=== PATIENT | male | born 1990 | race Caucasian/White ===

== ENCOUNTER 2023-05-11 17:26 | Emergency (ER) | payer BC, SELFPAY ==
[2023-05-11 17:37] VITALS: BP 133/97; PULSE 75; RESP 20; TEMP 36.7; O2SAT 97; BMI 42.9
--- NOTE | 2023-05-11 17:42 | ED.DENTAL1 ---
HPI - Dental/Oral General Chief complaint: Dental/Oral Stated complaint: Dental Pain Time Seen by Provider: 05/11/23 17:42 Source: patient Mode of arrival: walk-in History of Present Illness HPI Narrative: Patient is a 33-year-old male who presents to the emergency department for the evaluation of dental pain in the left mandible that began yesterday. He states ibuprofen was controlling his pain yesterday but today he has had a significant increase in pain on tooth #20 where he has a partial avulsion. He denies any new injuries or traumas. No drainage from the tooth. He denies fevers or vomiting. He denies tobacco abuse. Related Data Previous Rx's Medication Instructions Recorded amoxicillin 500 mg capsule 500 mg PO TID 10 days #30 caps 05/11/23 ketorolac 10 mg tablet 10 mg PO TID PRN pain #10 tabs 05/11/23 Allergies Allergy/AdvReac Type Severity Reaction Status Date / Time No Known Drug Allergies Allergy Verified 05/11/23 17:39 Review of Systems ROS Constitutional Denies: fever or chills Ears, nose, mouth, and throat Denies: throat pain or nasal congestion Respiratory Denies: shortness of breath Gastrointestinal Denies: nausea or vomiting Musculoskeletal Denies: back pain Integumentary/Breast Denies: rash Neurological Denies: headache Hematologic/Lymphatic Denies: easy bruising Exam Narrative Exam Narrative: Gen.: Awake, alert, in no distress Head: Normocephalic, atraumatic ENT: Moist mucous membranes, partial avulsion of tooth #20 with root exposure at the gumline. No redness or swelling under the tongue. Clear speech. Uvula midline with airway widely open and patent. No visible dental abscess or drainage noted Respiratory: No respiratory distress Extremities: Moves extremities equally Psych: Normal mood and affect Neuro: No focal neuro deficit Skin: Warm, dry, intact Constitutional Vital Signs, click to edit/add: Last Vital Signs Temp 98.1 F 05/11/23 17:37 Pulse 75 05/11/23 17:37 Resp 20 05/11/23 17:37 BP 133/97 H 05/11/23 17:37 Pulse Ox 97 05/11/23 17:37 O2 Del Method Room Air 05/11/23 17:37 Course Vital Signs Vital signs: Vital Signs Temperature 98.1 F 05/11/23 17:37 Pulse Rate 75 05/11/23 17:37 Respiratory Rate 20 05/11/23 17:37 Blood Pressure 133/97 H 05/11/23 17:37 Pulse Oximetry 97 05/11/23 17:37 Oxygen Delivery Method Room Air 05/11/23 17:37 Temperature 98.1 F 05/11/23 17:37 Pulse Rate 75 05/11/23 17:37 Respiratory Rate 20 05/11/23 17:37 Blood Pressure 133/97 H 05/11/23 17:37 Pulse Oximetry 97 05/11/23 17:37 Oxygen Delivery Method Room Air 05/11/23 17:37 MDM - Dental/Oral MDM Narrative Medical decision making narrative: Patient treated with topical analgesia, antibiotics and a short course of NSAIDs. Follow-up with dentist and return to the Emergency Room if symptoms change or worsen. No evidence of dental abscess at this time. Medical Records Attestation: I reviewed the patient's medical records. Discharge Plan Discharge Chief Complaint: Dental/Oral Clinical Impression: Toothache, Fracture of tooth Patient Disposition: Home, Self-Care Time of Disposition Decision: 17:48 Condition: Good Prescriptions / Home Meds: New amoxicillin 500 mg capsule 500 mg PO TID 10 Days Qty: 30 0RF ketorolac 10 mg tablet 10 mg PO TID PRN (Reason: pain) Qty: 10 0RF Instructions: Toothache (ED) Additional Instructions: Follow-up with your dentist Stand Alone Forms: Portal Instructions Referrals: CAROLYNE MARIE [Primary Care Provider] - 1 week
[2023-05-11] MEDS: HYDROCODONE/ACET 5-325 MG TABLET 1 TAB PO (18:04)
[2023-05-11] MEDS: BENZOCAINE 30 ML, lidocaine HCL 15 ML MM (18:06)
== END 2023-05-11 18:08 | disposition home or self-care (01) ==
PROVIDERS: Emergency Provider Emergency Medicine; PCP Nurse Practitioner Family
DX: S02.5XXA Fracture of tooth (traumatic), initial encounter for closed fracture (principal); K08.89 Other specified disorders of teeth and supporting structures; X58.XXXA Exposure to other specified factors, initial encounter
CPT/HCPCS: 99283

== ENCOUNTER 2025-04-12 07:06 | Outpatient (OUT) | payer BC, SELFPAY ==
--- OUTSIDE RECORDS SUMMARY | 2025-04-05 09:38 | XMS_ITS | Continuity of Care Document ---
Author Organization [facility] Address [address] [place] [address] Phone Care Team Providers Care Bulb Weeder Name Role Phone Corry Byrne APRN Primary Care Provider Corry Byrne APRN Attending Provider [phone]( [phone] Care Teams Patient Care Team Team Status: Active Member Role Status Dates Corry Byrne APRN ORDER ENTRY-C Primary Care Provider Active Patient Care Team Team Status: Inactive Member Role Status Dates Corry Byrne APRN ORDER ENTRY-C Primary Care Provider Active Start: March End: April 05, 2025Corry Byrne APRN ORDER ENTRY-CAttending ProviderActive Start: April 05, 2025 End: April 05, 2025 Chief Complaint and Reason for Visit Chief Complaint Admit Date Wellness April 05, 2025 1 :03pm Reason for Visit Admit Date BMI 40.0-44.9, adult April 05, 2025 1:03pm Hypercholesterolemia April 05, 2025 1:03pm Impaired fasting glucose April 05, 2 025 1:03pm Wellness examination April 05, 2025 1:03pm Allergies, Adverse Reactions, Alerts Allergen Type Severity Reaction Last Updated Verified Status No Known Allergies Allergy Unknown April 05, 2025 1:04pmYesActive Social History Smoking Status Status Start Date End Date Date of Observa tion Never smoked tobacco (finding) October 23, 2024 9:34am Observation Status Observation Response Date of Response Legal Sex Male (finding) Sex Assigned At BirthMaleSeptember 1989 Family History Relationship Condition Age at Onset Recorded Date/T samanta father Hypertension Unknown Diabetes mellitusUnknownDeceasedUnknownmotherDiabetes mellitusUnknownsister Diabetes mellitusUnknown Problems Active Problems Medical Problem Onset Date Status Wellness examination Unknown Active Hypercholesterolemia Unknown Active Impaired fasting glucose Unknown Active BMI 40.0-44.9, adult Unknown Active Inactive/Resolved Problems Medical Problem Onset Date Status Viral URI with cough Unknown Resolved Cellulitis of right thumb Unknown Resolv ed Medications Medication Status Dose Units Route Directions Qty Days St art Date Stop Date End Date Instructions Adherence Atorvastatin 10 mg tablet Active 10 MG PO Daily 90 90 April 04, 2025 11:11am Complies with drug therapyAmoxicillin-Pot Clavulanate 875-125 mg tablet Uinhoecepvlc8FZAWTPeegb wctnk2784RttqgyuApril 07, 2024 12:00amMay 2024 9:34am Atorvastatin 10 mg qbfakyHywrhmbgegeb25IUAMIatvqFejvakf 2023 12:00amOctober 2023 11:37amAtorvastatin 10 mg fgrvsqLnavolmbpvdp67QQKTAkktu7265Fboyriw 2023 11:[facility] 11:11am Immunizations Immunization Event Date Not Given Reason Dose Number [employer] Lot Number Vaccine Information Statement (VIS) Detail Administration Location Quadrivalent Influenza April 06, 2018 Quadrivalent InfluenzaOct2018 Vital Signs Vital Reading Result Reference Range Collection Date/Time Height 64 [in_i] April 05, 2025 1:[facility] 1:05pmBody Odocijlyvln49.2 [degF]97.6-99.0[facility] 2024 1:05pmHeart Rate86 /ghb81-087 April 05, 2025 1:05pmOxygen saturation by Pulse bnahabmw20 %95-100[facility] 2024 1:05pmBP Htklapwd319 mm[Hg]100-140[facility] 2024 1:05pmBP Ngiodzzgo53 mm[Hg]60-100[facility] 2024 1:05pmBMI (Body Mass Index)40.3 kg/m2 April 05, 2025 1:05pm Advance Directives Advance Directive Response Recorded Date/ Time Advance Directives No July 10:33am Insurance Providers Guarantor Kimani Basilio Address [address] [place] [address] [place] [address]Juoayyj Info.Home Phone: Payer Policy Id Subscriber's Name Subscriber Id Effectiv e Date Expiration Date Daniela GALDAMEZ/JEROMY [id number] Kimani Basilio [id number] [facility] Net [id number] [place] , [id number] Encounters Encounter Location(s) Arrival/Admit Date Discharge/Depart Date Provider(s) Departed Physician/Prov ider Office Visit -[facility] April 05, 2025 1:03pm April 05, 2025 1:37pm Corry Byrne APRN CNP Recent Diagnosis Onset Date Admit Date BMI 40.0-44.9, adult Unknown March 1:03pm Hypercholesterolemia Unknown March 1:03pm Impaired fasting glucose Unknown April 05, 2025 1:03pm Wellness examination Unknown March 1:03pm Assessments Diagnosis Onset Date Resolution Status Admit Date BMI 40.0-44.9, adult acuteOctober 2024 1:03pmHypercholesterolemiaacuteOct2024 1:03pm Impaired fasting glucoseacuteOct2024 1:03pmWellness examinationacute April 05, 2025 1:03pm Plan of Treatment Author Corry Byrne [facility] 1:23pmContinue Atorvastatin Discussed importance of maintaining an LDL level at specified goal. Discussed associated risk factors of hyperlipidemia including stroke and heart attack. Treatment with medications discussed and we have agrees upon appropriate action of treatment and goals. Discussed dietary modifications, including decreasing red meat consumption, decreased alcohol consumption, avoiding fried foods, and cake and cookies, and sweets. Encouraged increasing fiber in diet and eat a diet rich in omega-3. Encouraged to exercise at least 150 minutes weekly. Barriers to plan of care have been addressed. Follow-up as directed. Patient given a copy of the plan of care. Due for A1c Personalized health advice was given a plan for screenings discussed and provided. Advanced care planning reviewed and/or information given as requested. Additional counseling was provided here today in regards to general topics regarding health education were discussed in detail. All preventative issues were discussed including remaining a nonsmoker, colorectal screening, the importance of proper sleep for brain health maintenance, maintaining a heart- healthy balanced diet, recognizing and addressing signs of anxiety and depression, maintaining positive relationships with family and friends. Patient is advised to work on healthy diet choices and appropriate servings, weight control, regular exercise as directed, reduced fat intake, and salt avoidance. Patient voiced understanding of this and agrees to this plan. Future Tests Future scheduled test information is unavailable Pending Tests Test Name Ordered Date Scheduled Date Comprehensive Metabolic Panel April 05, 2025 1:10pm Future Visits Future appointment information is unavailable Referrals to Other Providers Referral information is unavailable Future Procedures Procedure Name Ordered Date Scheduled Date A1C with Estimated Average Glu April 05 1:10pm Complete Blood Count Auto DiffOctober 2024 1:10pmLipid PanelOctober 2024 1:10pm Future Medications Future medication information is unavailable Patient Instructions Patient instructions are unavailable
--- OUTSIDE RECORDS SUMMARY | 2025-04-12 07:11 | XMS_ITS | CCD ---
Author Organization [facility] Care Team Providers Care Named Account Executive Name Role Phone Corry Byrne Unavailable Ingrid Ferro Unavailable Corry Byrne APRN Primary Care Provider Corry Byrne APRN Attending Provider Medications Current Medications MedicationDrug Class(es)DatesSig (Normalized)Sig (Original)atorvastatin 10 mg oral tablet (10 sources)HMG-CoA Reductase InhibitorStart: 03-29-2024 End: 71-28-0075okub 1 tablet by mouth once dailyAtorvastatin 10 mg tablet Active 10 MG PO Daily April 04, 2025 11:11am Complies with drugtherapytake 1 tablet by mouth every twenty-four hoursLipitor 40 MG 1 tablet Orally Once a day for 90 day(s) Ufhihd55 hr metFORMIN hydrochloride 500 mg extended release oral tablet (2 sources)BiguanideStart: 12-50-2291dqze 1 tablet by mouth every twenty-four hoursmetFORMIN HCl ER 500 MG 1 tablet with evening meal Orally Once a day for 30 day(s) Sep, Active Completed/Discontinued Medications MedicationDrug Class(es)DatesSig (Normalized)Sig (Original)amoxicillin 875 mg / clavulanate 125 mg oral tablet (2 sources)Penicillin-class AntibacterialStart: 04-07-2024 End: 71-97-2036htfu 1 tablet by mouth twice dailyAmoxicillin-Pot Clavulanate 875-125 mg tablet Discontinued 1 TAB PO Twice daily March 12:00am October 23, 2024 9:34amOne Touch Glucometer N/A (2 sources)Start: 69-37-1511Hnl Touch Glucometer N/A as directed use as directed Sep, Not-Taking Problems Active Problems Problem ClassificationProblemDateDocumented DateEpisodic/ChronicDiabetes mellitus without complication (11 sources)Hyperglycemia; Translations: [Impaired fasting glucose]Onset: 09-13-2021 Resolved: 29-14-7156VdhrqstlJnuttxovr of lipid metabolism (11 sources)Hypercholesterolemia; Translations: [Pure hypercholesterolemia, unspecified]Onset: 09-13-2021 Resolved: 73-35-1238UldbmgnSmwtvlwvb (1 source)Influenza due to other identified influenza virus with other respiratory manifestationsEpisodicNutritional deficiencies (5 sources)Vitamin D deficiency; Translations: [Vitamin D deficiency, unspecified]ChronicOther nutritional; endocrine; and metabolic disorders (2 sources)Body mass index 40+ - severely obese; Translations: [Body mass index (BMI) 40.0-44.9, adult]00-17-0709DgpotoxXfjrn upper respiratory infections (2 sources)Acute pharyngitis, unspecified; Translations: [Viral upper respiratory tract infection]EpisodicSkin and subcutaneous tissue infections (2 sources)Cellulitis of right thumb; Translations: [Cellulitis of right finger] 78-31-6955Memtdwxm Past or Other Problems Problem ClassificationProblemDateDocumented DateEpisodic/ChronicOther screening for suspected conditions (not mental disorders or infectious disease) (1 source)Encounter for screening for other metabolic disordersOnset: 09-13-2021 Resolved: 00-54-1437Jakhhicu Results Test NameValueInterpretationReference RangeFacilityNo Panel InformationOrdered By: Kavita Ruiz on 00-26-6729Gdxnr Strep (POC)[facility] InstituteCOVID/FLU RT-PCRon 83-82-5819IHJZ-CoV-2 (COVID-19) RNA AKANKSHA+probe Ql (Unsp spec)NegativeNoPicaHome.com Other COVID/FLU RT-PCRPositiveNoMydeo Other COVID/FLU RT-PCRNegativeMydeo Other Quick Strepon 05-18-2022. pyogenes Org specific cx Ql (Throat)NegativeNortPicaHome.com Other Quick [facility] HospitalPDC [employer] Amplidata Other A1C with Estimated Average Gluon 24-36-8428Qphqmue [Mass/Vol]128 mg/dLNormOhioHealth Grant Medical CenterComment on above:Order Comment: Reason for Exam Impaired fasting glucoseResult Comment: PERFORMED BY: [place] [address] PATHOLOGIST RESIDENTIAL LIFE DIRECTOR TRI KINSEY M.D.Performed By: #### LIPID, CMP, CBC, A1C WTH eA #### [place] [address] EYOHpA6v (Bld) [Mass fraction]6.1 %High4.3-5.6FAdena Regional Medical CenterComment on above:Order Comment: Reason for Exam Impaired fasting glucoseResult Comment: Increased risk for diabetes: 5.7 - 6.4 diabetes: >6.4 glycemic control for adults with diabetes: <7.0Performed By: #### LIPID, CMP, CBC, A1C WTH eA #### [place] [address] USAComplete Blood Count Auto Diffon 80-57-6307Nnmtdxyrn (Bld) [#/Vol]0.0 10*3/uLNormal0.0-0.2FAdena Regional Medical CenterComment on above:Order Comment: Reason for Exam Impaired fasting glucose;Hypercholesterolemia;Screening forResult Comment: PERFORMED BY: [place] [address] PATHOLOGIST RESIDENTIAL LIFE DIRECTOR TRI KINSEY M.D.Performed By: #### LIPID, CMP, CBC, A1C WTH eA #### [place] [address] USABasophils/100 WBC (Bld)0.2 %Normal.[facility] InstituteComment on above:Order Comment: Reason for Exam Impaired fasting glucose;Hypercholesterolemia;Screening forPerformed By: #### LIPID, CMP, CBC, A1C WTH eA #### [place] [id number] USAEosinophils (Bld) [#/Vol]0.1 10*3/uLNormal0.0-0.45 [facility] InstituteComment on above:Order Comment: Reason for Exam Impaired fasting glucose;Hypercholesterolemia;Screening forPerformed By: #### LIPID, CMP, CBC, A1C WTH eA #### [facility] [address] [place] [id number] USAEosinophils/100 WBC (Bld)0.9 %Normal.[facility] Health InstituteComment on above:Order Comment: Reason for Exam Impaired fasting glucose;Hypercholesterolemia;Screening forPerformed By: #### LIPID, CMP, CBC, A1C WTH eA #### [place] [address] USAErythrocyte distribution width (RBC) [Ratio]12.9 %Normal 12.0-14.8R[facility] InstituteComment on above:Order Comment: Reason for Exam Impaired fasting glucose;Hypercholesterolemia;Screening forPerformed By: #### LIPID, CMP, CBC, A1C WTH eA #### [place] [id number] USAHematocrit (Bld) [Volume fraction]43.4 %Qaasyl07.8-50.0 [facility] InstituteComment on above:Order Comment: Reason for Exam Impaired fasting glucose;Hypercholesterolemia;Screening forPerformed By: #### LIPID, CMP, CBC, A1C WTH eA #### [place] [address] USAHemoglobin (Bld) [Mass/Vol]14.7 g/cVAggjcf49.0-17.0 [facility] InstituteComment on above:Order Comment: Reason for Exam Impaired fasting glucose;Hypercholesterolemia;Screening forPerformed By: #### LIPID, CMP, CBC, A1C WTH eA #### [place] [id number] USALymphocytes (Bld) [#/Vol]1.1 10*3/uLNormal1.00-4.8 [facility] InstituteComment on above:Order Comment: Reason for Exam Impaired fasting glucose;Hypercholesterolemia;Screening forPerformed By: #### LIPID, CMP, CBC, A1C WTH eA #### [facility] [address] [place] [id number] USALymphocytes/100 WBC (Bld)9.7 %Normal.[facility] Health InstituteComment on above:Order Comment: Reason for Exam Impaired fasting glucose;Hypercholesterolemia;Screening forPerformed By: #### LIPID, CMP, CBC, A1C WTH eA #### [facility] [address]H (RBC) [Entitic mass]28.6 zsFfaewm59.5-35.2FAdena Regional Medical CenterComment on above:Order Comment: Reason for Exam Impaired fasting glucose;Hypercholesterolemia;Screening forPerformed By: #### LIPID, CMP, CBC, A1C WTH eA #### [place] [address] USAV (RBC) [Entitic vol]84.7 qGXrvveg42.5-101R[facility] Health InstituteComment on above:Order Comment: Reason for Exam Impaired fasting glucose;Hypercholesterolemia;Screening forPerformed By: #### LIPID, CMP, CBC, A1C WTH eA #### [place] [address] USAMean Corpuscular HGB Conc33.8 g/ePPfldoq90.5-35.6FAdena Regional Medical CenterComment on above:Order Comment: Reason for Exam Impaired fasting glucose;Hypercholesterolemia;Screening forPerformed By: #### LIPID, CMP, CBC, A1C WTH eA #### [place] [address] USAMonocytes (Bld) [#/Vol]0.4 10*3/uLNormal0.0-0.8R[facility] InstituteComment on above:Order Comment: Reason for Exam Impaired fasting glucose;Hypercholesterolemia;Screening forPerformed By: #### LIPID, CMP, CBC, A1C WTH eA #### [place] [address] USAMonocytes/100 WBC (Bld)3.6 %Normal.[facility] InstituteComment on above:Order Comment: Reason for Exam Impaired fasting glucose;Hypercholesterolemia;Screening forPerformed By: #### LIPID, CMP, CBC, A1C WTH eA #### [facility] [address] [place] [address] USANeutrophils (Bld) [#/Vol]9.8 10*3/uLHigh1.8-7.7FAdena Regional Medical CenterComment on above:Order Comment: Reason for Exam Impaired fasting glucose;Hypercholesterolemia;Screening forPerformed By: #### LIPID, CMP, CBC, A1C WTH eA #### [facility] [address] [place] [id number] USANeutrophils/100 WBC (Bld)85.6 %Normal.[facility] Health InstituteComment on above:Order Comment: Reason for Exam Impaired fasting glucose;Hypercholesterolemia;Screening forPerformed By: #### LIPID, CMP, CBC, A1C WTH eA #### [facility] [address] [place] [address] USANucleated RBC/100 WBC (Bld) [Ratio]0.0 %Normal0-0.5 [facility] InstituteComment on above:Order Comment: Reason for Exam Impaired fasting glucose;Hypercholesterolemia;Screening forPerformed By: #### LIPID, CMP, CBC, A1C WTH eA #### [facility] [address] [place] [address] USAPlatelet mean volume (Bld) [Entitic vol]9.4 fLNormal 6.6-10.1FAdena Regional Medical CenterComment on above:Order Comment: Reason for Exam Impaired fasting glucose;Hypercholesterolemia;Screening forPerformed By: #### LIPID, CMP, CBC, A1C WTH eA #### [facility] [address] [place] [address] USAPlatelets (Bld) [#/Vol]227 10*3/hCYpxypy070-976LaxkdvojdRiverview Health InstituteComment on above:Order Comment: Reason for Exam Impaired fasting glucose;Hypercholesterolemia;Screening forPerformed By: #### LIPID, CMP, CBC, A1C WTH eA #### [facility] [address] [place] [address] USARBC (Bld) [#/Vol]5.13 10*6/uLNormal3.90-5.60R[facility] Health InstituteComment on above:Order Comment: Reason for Exam Impaired fasting glucose;Hypercholesterolemia;Screening forPerformed By: #### LIPID, CMP, CBC, A1C WTH eA #### [facility] [address] [place] [address] USAWBC (Bld) [#/Vol]11.5 10*3/uLHigh4.5-11.0R[facility] Health InstituteComment on above:Order Comment: Reason for Exam Impaired fasting glucose;Hypercholesterolemia;Screening forPerformed By: #### LIPID, CMP, CBC, A1C WTH eA #### [facility] [address] [place] [id number] USAComprehensive Metabolic Panelon 20-52-3270Ceayfnp [Mass/Vol]4.2 g/dLNormal3.2-5.5FAdena Regional Medical CenterComment on above:Order Comment: Reason for Exam Impaired fasting glucose;Hypercholesterolemia;Screening forPerformed By: #### LIPID, CMP, CBC, A1C WTH eA #### [facility] [address] [place] [address] USAAlbumin/Globulin [Mass ratio]1.4 {ratio}NormalRiverview Health InstituteComment on above:Order Comment: Reason for Exam Impaired fasting glucose;Hypercholesterolemia;Screening forPerformed By: #### LIPID, CMP, CBC, A1C WTH eA #### [facility] [address] [place] [address] USAALP [Catalytic activity/Vol]98 U/GBdrh53-91QewiteryrRiverview Health InstituteComment on above:Order Comment: Reason for Exam Impaired fasting glucose;Hypercholesterolemia;Screening forPerformed By: #### LIPID, CMP, CBC, A1C WTH eA #### [facility] [address] [place] [address] USAALT [Catalytic activity/Vol]65 U/VJauq02-28WhbfdnptgRiverview Health InstituteComment on above:Order Comment: Reason for Exam Impaired fasting glucose;Hypercholesterolemia;Screening forPerformed By: #### LIPID, CMP, CBC, A1C WTH eA #### [facility] [address] [place] [address] USAAST [Catalytic activity/Vol]34 U/MHspkao90-58YgqcojlkrRiverview Health InstituteComment on above:Order Comment: Reason for Exam Impaired fasting glucose;Hypercholesterolemia;Screening forPerformed By: #### LIPID, CMP, CBC, A1C WTH eA #### [facility] [address] [place] [address] USABilirubin [Mass/Vol]0.9 mg/dLNormal0.3-1.2FAdena Regional Medical CenterComment on above:Order Comment: Reason for Exam Impaired fasting glucose;Hypercholesterolemia;Screening forPerformed By: #### LIPID, CMP, CBC, A1C WTH eA #### [facility] [address] [place] [address] USACalcium [Mass/Vol]9.8 mg/dLNormal8.2-10.2FAdena Regional Medical CenterComment on above:Order Comment: Reason for Exam Impaired fasting glucose;Hypercholesterolemia;Screening forPerformed By: #### LIPID, CMP, CBC, A1C WTH eA #### [facility] [address] [place] [id number] USAChloride [Moles/Vol]102 mmol/IUfvktf51-532VzwfmzuvpRiverview Health InstituteComment on above:Order Comment: Reason for Exam Impaired fasting glucose;Hypercholesterolemia;Screening forPerformed By: #### LIPID, CMP, CBC, A1C WTH eA #### [facility] [address] [place] [id number] USACO2 [Moles/Vol]27.6 mmol/KJqjbzf65.0-30.0R[facility] Health InstituteComment on above:Order Comment: Reason for Exam Impaired fasting glucose;Hypercholesterolemia;Screening forPerformed By: #### LIPID, CMP, CBC, A1C WTH eA #### [facility] [address] [place] [id number] USACreatinine [Mass/Vol]0.97 mg/dLNormal0.64-1.27R[facility] Health InstituteComment on above:Order Comment: Reason for Exam Impaired fasting glucose;Hypercholesterolemia;Screening forPerformed By: #### LIPID, CMP, CBC, A1C WTH eA #### [facility] [address] [place] [id number] USAEstimated GFR ( Karmen> 60NoSelect Medical Specialty Hospital - Cincinnati NorthComment on above:Order Comment: Reason for Exam Impaired fasting glucose;Hypercholesterolemia;Screening forResult Comment: GFR estimated reference range: According to KDOQI guidelines, <60 ml/min/1.73m2 is sufficient to diagnose a patient with chronic kidney disease.Performed By: #### LIPID, CMP, CBC, A1C WTH eA #### [facility] [address] [place] [id number] USAEstimated GFR (Non- Am> 60Aultman Orrville HospitalComment on above:Order Comment: Reason for Exam Impaired fasting glucose;Hypercholesterolemia;Screening forPerformed By: #### LIPID, CMP, CBC, A1C WTH eA #### [facility] [address] [place] [id number] USAGlobulin (S) [Mass/Vol]3.0 g/dLAultman Orrville HospitalComment on above:Order Comment: Reason for Exam Impaired fasting glucose;Hypercholesterolemia;Screening forPerformed By: #### LIPID, CMP, CBC, A1C WTH eA #### [facility] [address] [place] [id number] USAGlucose [Mass/Vol]116 mg/wPHgpg10-586Kfaxvnyqh08 Brooks StreetComment on above:Order Comment: Reason for Exam Impaired fasting glucose;Hypercholesterolemia;Screening forResult Comment: Random Glucose Reference Range is dependent on time and content of last meal. Glucose of more than 200 mg/dL in a nonstressed, ambulatory subject supports the diagnosis of Diabetes Mellitus. ADA recommended reference rangePerformed By: #### LIPID, CMP, CBC, A1C WTH eA #### [facility] [address] [place] [id number] USAPotassium [Moles/Vol]4.3 mmol/LNormal3.5-5.1FAdena Regional Medical CenterComment on above:Order Comment: Reason for Exam Impaired fasting glucose;Hypercholesterolemia;Screening forPerformed By: #### LIPID, CMP, CBC, A1C WTH eA #### [facility] [address] [place] [id number] USAProtein [Mass/Vol]7.2 g/dLNormal6.1-7.9R[facility] Health InstituteComment on above:Order Comment: Reason for Exam Impaired fasting glucose;Hypercholesterolemia;Screening forPerformed By: #### LIPID, CMP, CBC, A1C WTH eA #### [facility] [address] [place] [address] USASodium [Moles/Vol]138 mmol/CAghdgu703-888HmqxrvlwhRiverview Health InstituteComment on above:Order Comment: Reason for Exam Impaired fasting glucose;Hypercholesterolemia;Screening forPerformed By: #### LIPID, CMP, CBC, A1C WTH eA #### [facility] [address] [place] [address] USAUrea nitrogen [Mass/Vol]11 mg/dLNoal9-23R[facility] Health InstituteComment on above:Order Comment: Reason for Exam Impaired fasting glucose;Hypercholesterolemia;Screening forPerformed By: #### LIPID, CMP, CBC, A1C WTH eA #### [facility] [address] [place] [address] USALipid Panelon 88-18-3329Hhnmgplclds [Mass/Vol]158 mg/dL Eywkel469-450BxwezqhwdRiverview Health InstituteComment on above:Order Comment: Reason for Exam Impaired fasting glucose;Hypercholesterolemia;Screening forResult Comment: Chol less than 200 mg/dl low risk Chol 201-239 mg/dl borderline risk Chol 240 mg/dl and greater high riskPerformed By: #### LIPID, CMP, CBC, A1C WTH eA #### [facility] [address] [place] [address] USACholesterol in HDL [Mass/Vol]38 mg/mFFwprue53-55IrorisbdgRiverview Health InstituteComment on above:Order Comment: Reason for Exam Impaired fasting glucose;Hypercholesterolemia;Screening forResult Comment: HDL CHOL ATP-III CLASSIFICATION Cardiovascular Risk HDL > or equal to 60 mg/dL LOW HDL < 40 mg/dL HIGHPerformed By: #### LIPID, CMP, CBC, A1C WTH eA #### [facility] [address] [place] [address] USACholesterol.total/Cholesterol in HDL [Mass ratio]4.2 {ratio}Normal<5.0R[facility] Health InstituteComment on above:Order Comment: Reason for Exam Impaired fasting glucose;Hypercholesterolemia;Screening forResult Comment: PERFORMED BY: [place] [address] PATHOLOGIST RESIDENTIAL LIFE DIRECTOR TRI KINSEY M.D.Performed By: #### LIPID, CMP, CBC, A1C WTH eA #### [facility] [address] [place] [id number] USALDL Cholesterol,Estraghmxz45 mg/dLNormal0-100R[facility] Health InstituteComment on above:Order Comment: Reason for Exam Impaired fasting glucose;Hypercholesterolemia;Screening forResult Comment: LDL ATP III CLASSIFICATION LDL less than 100 mg/dL Optimal LDL 100-129 mg/dL Near or above optimal LDL 130-159 mg/dL Borderline high LDL 160-189 mg/dL High LDL greater than 189 mg/dL Very highPerformed By: #### LIPID, CMP, CBC, A1C WTH eA #### [place] [address] USATriglyceride w/Qxirtc452 mg/uAHfjwia85-538GakfcksaaRiverview Health InstituteComment on above:Order Comment: Reason for Exam Impaired fasting glucose;Hypercholesterolemia;Screening forResult Comment: TRIG ATP III CLASSIFICATION TRIG less than 150 mg/dL Normal TRIG 150-199 mg/dL Borderline high TRIG 200-500 mg/dL High TRIG greater than 500 mg/dL Very high Standard traceable to the Center for Disease Conrtrol and Prevention (CDC) test method.Performed By: #### LIPID, CMP, CBC, A1C WTH eA #### [place] [id number] USAVLDL HWYYECYEYIY16 mg/dLNormOhioHealth Grant Medical CenterComment on above:Order Comment: Reason for Exam Impaired fasting glucose;Hypercholesterolemia;Screening forPerformed By: #### LIPID, CMP, CBC, A1C WTH eA #### [place] [id number] USACoding Summaryon 61-60-1322Hroupn SummaryCODING DATE: 04/19/2019 [facility] STATUS: Home PAYOR: Other Gov Trad ADMIT DX: REASON FOR VISIT DX: R45.851 Suicidal ideations FINAL DX: PRINCIPAL: R45.851 Suicidal ideations SECONDARY: PYMT PROC APC STAT DESCRIPTION DOCTOR NAME DATE NOTE: The code number assigned matches the documented diagnosis and / or procedure in the patient's chart. However, the narrative phrase printed from the coding software may appear abbreviated, or result in slightly different terminology. Coded By: Corry Kay Date Saved: 04/19/2019 01:14 [facility] HospitalCoding SummaryCODING DATE: 04/19/2019 [facility] STATUS: Home PAYOR: Other Gov Trad ADMIT DX: REASON FOR VISIT DX: R45.851 Suicidal ideations FINAL DX: PRINCIPAL: R45.851 Suicidal ideations SECONDARY: PYMT PROC APC STAT DESCRIPTION DOCTOR NAME DATE NOTE: The code number assigned matches the documented diagnosis and / or procedure in the patient's chart. However, the narrative phrase printed from the coding software may appear abbreviated, or result in slightly different terminology. Coded By: Corry Kay Date Saved: 04/19/2019 01:13 [facility].Auto Diff 1on 04-14-2019 Auto Sharkey %14 %High1-12[facility] NorthComment on above:Performed By: #### [id number], [id number], [id number], [id number], [id number], [id number] #### [place] (DEFAULT) [address] [place] [address] 20324Urwc Abs#0.0 w34Umttzt6.0-0.2[facility] HospitalComment on above:Performed By: #### [id number], [id number], [id number], [id number], [id number], [id number] #### [place] (DEFAULT) [address] [place] [address] 78290Tdjpfcftt/100 WBC (Bld)1.1 %Normal0.2-2.0[facility] Comment on above:Performed By: #### [id number], [id number], [id number], [id number], [id number], [id number] #### [place] (DEFAULT) [address] [place] [address] 39005Jzn Abs#0.1 p73Yeznem1.0-0.4[facility] HospitalComment on above:Performed By: #### [id number], [id number], 6705043, [id number], [id number], [id number] #### [place] (DEFAULT) [address] [place] [address] 18984Klwcqzrsxst/100 WBC (Bld)1.5 %Normal0.9-4.0[facility] HospitalComment on above:Performed By: #### [id number], [id number], 8714069, [id number], [id number], [id number] #### [place] (DEFAULT) [address] [place] [address] 34728Wwmnpjblzpf (Bld) [#/Vol]1.6 b45Hlntrw2.3-2.9[facility] HospitalComment on above:Performed By: #### [id number], 277837959, 7237210, [id number], [id number], [id number] #### [place] (DEFAULT) [address] [place] [address] 32767Owzimciihgx/100 WBC (Bld)35 %Lapqab01-57Dcdoswjk Hospital Comment on above:Performed By: #### [id number], [id number], 9608443, [id number], [id number], [id number] #### [place] (DEFAULT) [address] [place] [address] 61309Xqsk Abs#0.6 j01Vnyouj6.0-0.8[facility] HospitalComment on above:Performed By: #### [id number], 158434670, 1860004, [id number], [id number], [id number] #### [place] (DEFAULT) [address] [place] [address] 35232Ufti Abs#2.2 a61Rvtqcd9.5-9.2Magrst. anthony[facility] hospital HospitalComment on above:Performed By: #### [id number], 442759834, 5611805, [id number], [id number], [id number] #### [facility] ([facility] [address] [place] [address] 66529Lxnhzuhimmo/100 WBC (Bld)49 %Dpmojg51-74Gswehtxt Hospital Comment on above:Performed By: #### [id number], [id number], 3694021, 2722481774, [id number], [id number] #### [place] (DEFAULT) [address] [place] [address] 21088WJH w/ Auto Diffon 65-02-1706Wkwmvtqfogx distribution width (RBC) [Ratio]13.4 %Dihzsy70.5-15.0[facility] NorthComment on above: Performed By: #### [id number], 552711565, 9909218, 6230057740, 5092073668, [id number] #### [place] (DEFAULT) [address] [place] [address] 37751Ahoxvpgxze (Bld) [Volume fraction]39.8 %Mrjcis57.8-51.9 [facility] NorthComment on above:Performed By: #### [id number], 745094800, 1131065, 8542613920, 8882612188, [id number] #### [place] (DEFAULT) [address] [place] [address] 54227Fkznjiqrvw (Bld) [Mass/Vol]13.3 g/rXMobriv65.8-17.7 [facility] NorthComment on above:Performed By: #### [id number], [id number], 0712837, 4606188441, [id number], [id number] #### [place] (DEFAULT) [address] [place] [address] 51480Pnk Diff?AutoNormalSelect Medical Specialty Hospital - Cincinnati NorthComment on above: Performed By: #### [id number], 467302391, 5230251, 0514743901, 2417596113, [id number] #### [place] (DEFAULT) [address] [place] [address] 74364BNV (RBC) [Entitic mass]29 rxIavntm19-33Rifwrbir Hospital Comment on above:Performed By: #### [id number], 669672268, 8576924, 0951203335, [id number], [id number] #### [place] (DEFAULT) [address] [place] [address] 28256LNCC (RBC) [Mass/Vol]33 g/qHYdbckt17-64Wbvuggky Hospital Comment on above:Performed By: #### [id number], 357871365, 2498405, 2792270299, 0989286245, [id number] #### [place] (DEFAULT) [address] [place], [place] [address]MCV (RBC) [Entitic vol]88 pSRwxnwb99-068Wyhrfwvn Hospital Comment on above:Performed By: #### [id number], 447434233, 4204903, 1343640537, 4236248731, [id number] #### [place] (DEFAULT) [address] [place] [address] 86576Ugerirsz mean volume (Bld) [Entitic vol]11.1 fLHigh 6.3-10.2MChillicothe VA Medical CenterComment on above:Performed By: #### [id number], [id number], [id number], [id number], [id number], [id number] #### [place] (DEFAULT) [address] [place] [address] 25164Frawimesq (Bld) [#/Vol]210 l28Jrstbr885-017Haywxkau HospitalComment on above:Performed By: #### [id number], [id number], [id number], [id number], [id number], [id number] #### [place] (DEFAULT) [address] [place] [address] 88825XWG (Bld) [#/Vol]4.53 d53Baiscw9.70-5.30[facility] Comment on above:Performed By: #### [id number], [id number], 8909494, [id number], [id number], [id number] #### [place] (DEFAULT) [address] [place] [address] 10752FKP (Bld) [#/Vol]4.6 c09Iipzychi HospitalComment on above: Performed By: #### [id number], [id number], 2416364, 3859352482, [id number], [id number] #### [place] (DEFAULT) [address] [place] [address] 20702YKP Standardon 90-34-1828vRAW Non AA>60[facility] Comment on above:Performed By: #### [id number], [id number], 9186744, [id number], [id number], [id number] #### [place] (DEFAULT) [address] [place] [address] 92039iXPC AA>60[facility] HospitalComment on above:Result Comment: Chronic Kidney disease could be indicated at eGFRs of less than 60 ml/min/1.73m2. Kidney Failure is indicated at less than 15 ml/min/1.73m2 Performed By: #### [id number], [id number], 5128159, [id number], [id number], [id number] #### [place] (DEFAULT) [address] [place] [address] 50737Gbrjhrv [Mass/Vol]4.4 g/dLNormal3.5-5.0[facility] Comment on above:Performed By: #### [id number], [id number], 9344148, 9390397587, [id number], [id number] #### [place] (DEFAULT) [address] [place] [address] 87351Pkjfekp/Globulin [Mass ratio]1.5 {ratio}Normal1.4-2.6 [facility] above:Performed By: #### [id number], [id number], 2212081, [id number], [id number], [id number] #### [place] (DEFAULT) [address] [place] [address] 86328Ctq Phos69 IU/ZEesvlm22-66Gfatkqtf HospitalComment on above:Performed By: #### [id number], 589131682, 3216888, 7696572110, [id number], [id number] #### [facility] (DEFAULT) [address] [place] [address] 77747KGP/SGPT54.0 IU/TKessoi47.0-63.0[facility] HospitalComment on above:Performed By: #### [id number], 532424191, 7728952, 0752947109, 4852414140, [id number] #### [place] (DEFAULT) [address] [place] [address] 01949Nxxqb gap [Moles/Vol]13.0 mmol/LNormal5.0-19.0[facility] HospitalComment on above:Performed By: #### [id number], 400508209, 9108539, 9432409792, [id number], [id number] #### [place] (DEFAULT) [address] [place] [address] 77750QVC/SGOT34 IU/DUehwxq97-66Zumrcszd HospitalComment on above:Performed By: #### [id number], 272733542, 6910557, 2301182350, 3812992587, [id number] #### [place] (DEFAULT) [address] [place] [address] 54100Cgxe Total0.8 mg/dLNormal0.3-1.2[facility] HospitalComment on above:Performed By: #### [id number], 326622577, 5036803, 2386254283, 3407583511, [id number] #### [place] (DEFAULT) [address] [place] [address] 66351Qxrhntl [Mass/Vol]9.7 mg/dLNormal8.9-10.3[facility] Comment on above:Performed By: #### [id number], 784261027, 7591868, 1407653842, 5615120471, [id number] #### [place] (DEFAULT) [address] [place] [address] 53039Sftbvbpc [Moles/Vol]105 mmol/QBobgtd947-263Cihwuixb HospitalComment on above:Performed By: #### [id number], 784166127, 4426206, 0750485969, 9007752599, [id number] #### [place] (DEFAULT) [address] [place] [address] 69146IX1 [Moles/Vol]27 mmol/VMjyaex75-64Ynrvhjvs Hospital Comment on above:Performed By: #### [id number], 578086502, 3484864, 8450793969, 9071767989, [id number] #### [place] (DEFAULT) [address] [place] [address] 19033Oxhitpyyik [Mass/Vol]0.62 mg/dLLow0.90-1.30[facility] HospitalComment on above:Performed By: #### [id number], 638659028, 4808763, 2092368192, 4059502591, [id number] #### [place] (DEFAULT) [address] [place] [address] 18657Mibiekgt (S) [Mass/Vol]3.0 g/dLNormal1.5-4.3[facility] HospitalComment on above:Performed By: #### [id number], 289379237, 7883953, 8106090015, 7251910630, [id number] #### [place] (DEFAULT) [address] [place] [address] 48669Xxdjpwn [Mass/Vol]125.0 mg/yVPsak72.0-118.0[facility] HospitalComment on above:Performed By: #### [id number], 285604230, 3829160, 2890428225, 1134555584, [id number] #### [place] (DEFAULT) [address] [place] [address] 60543Hjvkmmvydt [Osmolality]281 mOsm/LMagrst. anthony's hospital HospitalComment on above:Performed By: #### [id number], 683069279, 4664144, 7372277949, 2402070194, [id number] #### [place] (DEFAULT) [address] [place] [address] 25639Gudgavvwk [Moles/Vol]4.2 mmol/LNormal3.6-5.1[facility]. [facility] HospitalComment on above:Performed By: #### [id number], 336409873, 4435501, 1506643926, 7375840291, [id number] #### [place] (DEFAULT) [address] [place] [address] 58970Xohloxr [Mass/Vol]7.4 g/dLNormal6.5-8.1[facility] Comment on above:Performed By: #### [id number], 199891913, 5868624, 5797339638, 6353029027, [id number] #### [place] (DEFAULT) [address] [place] [address] 63898Twmrwu [Moles/Vol]141.0 mmol/BXrqpjq364.0-144.0[facility] above:Performed By: #### [id number], 948213158, 2930898, 6784615135, 1158895922, [id number] #### [place] (DEFAULT) [address] [place] [address] 52705Evjl nitrogen [Mass/Vol]8 mg/dLNormal8-26[facility] Comment on above:Performed By: #### [id number], 017927369, 7929599, 3753337435, 8264387292, [id number] #### [place] (DEFAULT) [address] [place] [address] 58854Adga nitrogen/Creatinine [Mass ratio]13.0 mg/mgNormal 4.6-16.2MChillicothe VA Medical CenterComment on above:Performed By: #### [id number], 486776471, 9540525, 7119259137, 6627126452, [id number] #### [place] (DEFAULT) [address] [place] [address] 46486MC Clinical Summaryon [id number] Clinical Summary [facility] - Emergency Department [address] [place] [address] ED Clinical Summary PERSON INFORMATION Name: EDGAR BANERJEE Age: 29 Years Sex: MALE : 1990 MRN: Acct#: Visit Reason: Suicidal thoughts; SUCIDAL IDEATIONS Arrival: 04/14/2019 09:13:00 Discharge: 04/14/2019 11:52:00 LOS: 000 02:39 Check In: 04/14/2019 09:13:00 Checkout:04/14/2019 11:52:00 Address: [address] [place] [address] PCP: Provider, None PROVIDER INFORMATION Provider Role Assigned Unassigned Fidencio Dempsey MD ED Provider 04/14/2019 09:19:56 Elyse KRAFT, Bryce Kwon ED Nurse 04/14/2019 09:21:00 VITALS INFORMATION Vital Sign Triage Latest Temperature Tympanic Temperature Temporal Artery Pulse Rate 85 bpm 85 bpm O2 Sat 98 % 98 % Respiratory Rate 16 br/min 16 br/min Blood Pressure /77 mmHg /77 mmHg MEDICAL INFORMATION Medications Given: Allergy Information: No Known Medication Allergies PHYSICIAN DOCUMENTATION Patient: EDGAR BANERJEE Age: 29 years Sex: MALE : 1990 Associated Diagnoses: Suicidal thoughts Author: Fidencio Dempsey MD Basic Information Time seen: Date & time 04/14/2019 09:30:00. History source: Patient. Arrival mode: Private vehicle, walking. History limitation: None. Additional information: Chief Complaint from Nursing Triage Note : Chief Complaint 04/14/2019 9:12 EDT Chief Complaint pt is stressed at job at [employer] and states he will not make weight this season and that it would be easier to eat a bullet than deal with this. Pt states he immediatly told his and called the hotline. Pt is embaressed but wants help . History of Present Illness The patient presents with suicidal ideation. 29-year-old male presented to ER for evaluation of suicidal thoughts. Patient reported that he was in the [employer]. He stated that it is weight season. He would need to maintain a certain weight in order to maintain his service with the [employer]. He stated that he struggle with his weight for10 years now. He stated that trying to make weight this time seem to be very difficult. He had struggle with it. He stated that at one point, thinking about eating a bullet with seem to be the easiest route. He stated that after that thought, it was not a very strong one, he stated that he realized the possible danger. He told his . They had notified his officers. The had taken measures to remove firearms from his place of residence. He came to the emergency department at the request of his supervisors He stated that he has no suicidal ideation this time. He stated that he realized that it was a selfish thought. he stated that it would be unfair to his spouse and family. Stated that he had no history of clinical diagnosis of depression. He has some depressive moods previously however, no medical treatment Review of Systems Constitutional symptoms: No fever, no chills. Skin symptoms: Negative except as documented in HPI. Eye symptoms: Negative except as documented in HPI. ENMT symptoms: Negative except as documented in HPI. Respiratory symptoms: Negative except as documented in HPI. Cardiovascular symptoms: Negative except as documented in HPI. Gastrointestinal symptoms: Negative except as documented in HPI. Psychiatric symptoms: Depression. Endocrine symptoms: Negative except as documented in HPI. Hematologic/Lymphatic symptoms: Negative except as documented in HPI. Health Status Allergies: Allergic Reactions (Selected) No Known Medication Allergies. Medications: (Selected) Prescriptions Prescribed loratadine-pseudoephedrine 10 mg-240 mg oral tablet, extended release: 1 tab(s), PO, Daily, 15 tab(s), 0 Refill(s) Documented Medications Documented metFORMIN 500 mg oral tablet: 1,000 mg, 2 tab(s), PO, qPM, take with evening meal, 0 Refill(s). Past Medical/ Family/ Social History Medical history: No active or resolved past medical history items have been selected or recorded., Reviewed as documented in chart. Surgical history: No active procedure history items have been selected or recorded., Reviewed as documented in chart. Family history: No family history items have been selected or recorded., Reviewed as documented in chart. Social history: Social & Psychosocial Habits Alcohol 04/14/2019 Alcohol Use: Past Substance Abuse 04/14/2019 Substance use: Never Tobacco 03/04/2018 Smoking tobacco use: Never (less than 100 in l Electronic Cigarette/Vaping 04/14/2019 Electronic Cigarette Use: Never , Reviewed as documented in chart. Problem list: Active Problems (1) IFG (impaired fasting glucose) . Physical Examination Vital Signs Vital Signs 04/14/2019 9:12 EDT Temperature Oral 36.7 DegC Peripheral Pulse Rate 85 bpm Respiratory Rate 16 br/min Systolic Blood Pressure 132 mmHg Diastolic Blood Pressure 77 mmHg SpO2 98 % Oxygen Therapy Room air . Measurements 04/14/2019 9:28 EDT Height/Length Dosing 162.500 cm Weight Dosing 92.900 kg 04/14/2019 9:12 EDT Height/Length Estimated 162.500 cm Weight Estimated 92.900 kg . General: Alert, no acute distress, Age-appropriate, 29-year-old male, awake and alert, no distress at this time. Skin: Warm, dry, intact, no rash, normal for ethnicity. Head: Normocephalic, atraumatic. Neck: Supple, trachea midline. Eye: Pupils are equal, round and reactive to light, extraocular movements are intact, normal conjunctiva. Ears, nose, mouth and throat: ENT evaluation is grossly unremarkable. There are no complaints of ENT symptoms. Hearing is intact and adequate. Nose is normal without rhinorrhea or congestion. No facial swelling or asymmetry. Lips are normal. Oral mucous membranes appear normal. . Cardiovascular: Regular rate and rhythm, No murmur. Respiratory: Lungs are clear to auscultation, respirations are non-labored. Back: Normal range of motion. Musculoskeletal: Normal ROM, normal strength. Neurological: Alert and oriented to person, place, time, and situation, No focal neurological deficit observed, Neurologic examination is grossly unremarkable. The patient is awake, alert, appropriate. The patient is oriented to person place and time and situation. Speech is normal and spontaneous.Memory and recall is normal. Movement observed to be spontaneous without deficit or weakness or without impaired coordination. Patient ambulate with a normal steady gait. No obvious focal weakness ordeficit noted . Psychiatric: Cooperative, appropriate mood & affect, normal judgment. Medical Decision Making Differential Diagnosis: Depression, suicide risk. Documents reviewed: Prior records. Orders Launch Orders Laboratory: Triage Panel 12 (Order): Urine, Stat collect, 04/14/2019 9:57 EDT, Lab Collect, Clean Catch TSH w/ Reflex to FT4 (Order): Blood, Stat collect, 04/14/2019 9:57 EDT, Lab Collect CMP Standard (Order): Blood, Stat collect, 04/14/2019 9:57 EDT, Lab Collect CBC w/ Auto Diff (Order): Blood, Stat collect, 04/14/2019 9:57 EDT, Lab Collect. Results review: Lab results : Lab Flowsheet 04/14/2019 9:57 EDT Sodium Level 141.0 mmol/L Potassium Level 4.2 mmol/L Chloride Level 105 mmol/L CO2 27 mmol/L Anion Gap 13.0 mmol/L Glucose Level 125.0 mg/dL HI BUN 8 mg/dL Creatinine Level 0.62 mg/dL LOW BUN/Creat Ratio 13.0 eGFR AA >60 mL/min/1.73m2 NA eGFR Non AA >60 mL/min/1.73m2 NA Calcium Level 9.7 mg/dL Bili Total 0.8 mg/dL Alk Phos 69 IU/L AST/SGOT 34 IU/L ALT/SGPT 54.0 IU/L Protein Total 7.4 gm/dL Albumin Level 4.4 gm/dL Globulin 3.0 gm/dL A/G Ratio 1.5 Osmolality 281 mOsm/L NA TSH 1.30 mcIU/mL WBC 4.6 x103/mcL RBC 4.53 x106/mcL Hgb 13.3 gm/dL Hct 39.8 % MCV 88 fL MCH 29 pg MCHC 33 gm/dL RDW 13.4 % Platelet 210 x103/mcL MPV 11.1 fL HI Auto Neut % 49 % Auto Lymph % 35 % Auto Sharkey % 14 % HI Auto Eos % 1.5 % Auto Baso % 1.1 % Neut Abs# 2.2 x103/mcL Lymph Abs# 1.6 x103/mcL Sharkey Abs# 0.6 x103/mcL Eos Abs# 0.1 x103/mcL Baso Abs# 0.0 x103/mcL Urine Source Clean Catch U Cannab Scrn Negative U Oxycod Scr Negative U Amph Scr Negative U Cony Scr Negative U Benzodia Scr Negative U Cocaine Scr Negative U Methadone Scr Negative U Opiate Scr Negative U Phencyclidine Scr Negative U Propoxyphene Scr Negative U Methamp Scrn Negative U Tricyclic Antidepress Scr Negative Tube Collected Yes Tube Collected Yes . Reexamination/ Reevaluation Patient remained stable in the emergency department. No specific finding a medical screening exam. CBC chemistry profile and thyroid was obtained. Urine drug screen obtained. Results were unremarkable Patient spoke to mental health counseling. He is safe for safety planning and home discharge. Will follow up with counseling tomorrow. Patient and , indicated understanding of instructions and treatment plan. Impression and Plan Diagnosis Suicidal thoughts ([id number] R45.851, Discharge, Medical) Plan Condition: Improved, Stable. Disposition: Discharged: Time 04/14/2019 11:34:00, to home. Patient was given the following educational materials: Suicidal Feelings: How to Help Yourself, Suicidal Feelings: How to Help Yourself. Follow up with: ; [facility] In 1 day 04/15/2019 Follow up with counseling as discussed. Return to ER for any concerns. Counseled: Patient, Family, Regarding diagnosis, Regarding diagnostic results, Regarding treatment plan, Patient indicated understanding of instructions. DISCHARGE INFORMATION: Discharge Disposition: Home Discharge Location: Home PATIENT EDUCATION INFORMATION Instructions: Suicidal Feelings: How to Help Yourself Follow-Up: With: Address: When: [facility] In 1 day 04/15/2019 Comments: [phone] Follow up with counseling as discussed. Return to ER for any concerns DIAGNOSIS: Suicidal thoughts Patient Understands: Comment:[facility] Note - Otheron [id number] Note - OtherPt arrived in ER @ 0913 with a need for psych evaluation. Called [facility] @ 1000 counselor stated she will arrive with ETA 1hr. Counselor arrived @ 1038. Counselor made a safty plan with pt, and pt is cleared to go home. [Electronically Signed on: 04/14/2019 11:48 EDT] Mulu Snyder [Verified on: 04/14/2019 11:48 EDT] Mulu Snyder [facility]NH[facility] HospitalED Note - Physicianon [id number] Note - PhysicianPatient: EDGAR BANERJEE Age: 29 years Sex: MALE : 1990 Associated Diagnoses: Suicidal thoughts Author: Fidencio Dempsey MD Basic Information Time seen: Date & time 04/14/2019 09:30:00. History source: Patient. Arrival mode: Private vehicle, walking. History limitation: None. Additional information: Chief Complaint from Nursing Triage Note : Chief Complaint 04/14/2019 9:12 EDT Chief Complaint pt is stressed at job at [employer] and states he will not make weight this season and that it would be easier to eat a bullet than deal with this. Pt states he immediatly told his and called the hotline. Pt is embaressed but wants help . History of Present Illness The patient presents with suicidal ideation. 29-year-old male presented to ER for evaluation of suicidal thoughts. Patient reported that he was in the [employer]. He stated that it is weight season. He would need to maintain a certain weight in order to maintain his service with the [employer]. He stated that he struggle with his weight for10 years now. He stated that trying to make weight this time seem to be very difficult. He had struggle with it. He stated that at one point, thinking about eating a bullet with seem to be the easiest route. He stated that after that thought, it was not a very strong one, he stated that he realized the possible danger. He told his . They had notified his officers. The had taken measures to remove firearms from his place of residence. He came to the emergency department at the request of his supervisors He stated that he has no suicidal ideation this time. He stated that he realized that it was a selfish thought. he stated that it would be unfair to his spouse and family. Stated that he had no history of clinical diagnosis of depression. He has some depressive moods previously however, no medical treatment Review of Systems Constitutional symptoms: No fever, no chills. Skin symptoms: Negative except as documented in HPI. Eye symptoms: Negative except as documented in HPI. ENMT symptoms: Negative except as documented in HPI. Respiratory symptoms: Negative except as documented in HPI. Cardiovascular symptoms: Negative except as documented in HPI. Gastrointestinal symptoms: Negative except as documented in HPI. Psychiatric symptoms: Depression. Endocrine symptoms: Negative except as documented in HPI. Hematologic/Lymphatic symptoms: Negative except as documented in HPI. Health Status Allergies: Allergic Reactions (Selected) No Known Medication Allergies. Medications: (Selected) Prescriptions Prescribed loratadine-pseudoephedrine 10 mg-240 mg oral tablet, extended release: 1 tab(s), PO, Daily, 15 tab(s), 0 Refill(s) Documented Medications Documented metFORMIN 500 mg oral tablet: 1,000 mg, 2 tab(s), PO, qPM, take with evening meal, 0 Refill(s). Past Medical/ Family/ Social History Medical history: No active or resolved past medical history items have been selected or recorded., Reviewed as documented in chart. Surgical history: No active procedure history items have been selected or recorded., Reviewed as documented in chart. Family history: No family history items have been selected or recorded., Reviewed as documented in chart. Social history: Social & Psychosocial Habits Alcohol 04/14/2019 Alcohol Use: Past Substance Abuse 04/14/2019 Substance use: Never Tobacco 03/04/2018 Smoking tobacco use: Never (less than 100 in l Electronic Cigarette/Vaping 04/14/2019 Electronic Cigarette Use: Never , Reviewed as documented in chart. Problem list: Active Problems (1) IFG (impaired fasting glucose) . Physical Examination Vital Signs Vital Signs 04/14/2019 9:12 EDT Temperature Oral 36.7 DegC Peripheral Pulse Rate 85 bpm Respiratory Rate 16 br/min Systolic Blood Pressure 132 mmHg Diastolic Blood Pressure 77 mmHg SpO2 98 % Oxygen Therapy Room air . Measurements 04/14/2019 9:28 EDT Height/Length Dosing 162.500 cm Weight Dosing 92.900 kg 04/14/2019 9:12 EDT Height/Length Estimated 162.500 cm Weight Estimated 92.900 kg . General: Alert, no acute distress, Age-appropriate, 29-year-old male, awake and alert, no distress at this time. Skin: Warm, dry, intact, no rash, normal for ethnicity. Head: Normocephalic, atraumatic. Neck: Supple, trachea midline. Eye: Pupils are equal, round and reactive to light, extraocular movements are intact, normal conjunctiva. Ears, nose, mouth and throat: ENT evaluation is grossly unremarkable. There are no complaints of ENT symptoms. Hearing is intact and adequate. Nose is normal without rhinorrhea or congestion. No facial swelling or asymmetry. Lips are normal. Oral mucous membranes appear normal. . Cardiovascular: Regular rate and rhythm, No murmur. Respiratory: Lungs are clear to auscultation, respirations are non-labored. Back: Normal range of motion. Musculoskeletal: Normal ROM, normal strength. Neurological: Alert and oriented to person, place, time, and situation, No focal neurological deficit observed, Neurologic examination is grossly unremarkable. The patient is awake, alert, appropriate. The patient is oriented to person place and time and situation. Speech is normal and spontaneous.Memory and recall is normal. Movement observed to be spontaneous without deficit or weakness or without impaired coordination. Patient ambulate with a normal steady gait. No obvious focal weakness ordeficit noted . Psychiatric: Cooperative, appropriate mood & affect, normal judgment. Medical Decision Making Differential Diagnosis: Depression, suicide risk. Documents reviewed: Prior records. Orders Launch Orders Laboratory: Triage Panel 12 (Order): Urine, Stat collect, 04/14/2019 9:57 EDT, Lab Collect, Clean Catch TSH w/ Reflex to FT4 (Order): Blood, Stat collect, 04/14/2019 9:57 EDT, Lab Collect CMP Standard (Order): Blood, Stat collect, 04/14/2019 9:57 EDT, Lab Collect CBC w/ Auto Diff (Order): Blood, Stat collect, 04/14/2019 9:57 EDT, Lab Collect. Results review: Lab results : Lab Flowsheet 04/14/2019 9:57 EDT Sodium Level 141.0 mmol/L Potassium Level 4.2 mmol/L Chloride Level 105 mmol/L CO2 27 mmol/L Anion Gap 13.0 mmol/L Glucose Level 125.0 mg/dL HI BUN 8 mg/dL Creatinine Level 0.62 mg/dL LOW BUN/Creat Ratio 13.0 eGFR AA >60 mL/min/1.73m2 NA eGFR Non AA >60 mL/min/1.73m2 NA Calcium Level 9.7 mg/dL Bili Total 0.8 mg/dL Alk Phos 69 IU/L AST/SGOT 34 IU/L ALT/SGPT 54.0 IU/L Protein Total 7.4 gm/dL Albumin Level 4.4 gm/dL Globulin 3.0 gm/dL A/G Ratio 1.5 Osmolality 281 mOsm/L NA TSH 1.30 mcIU/mL WBC 4.6 x103/mcL RBC 4.53 x106/mcL Hgb 13.3 gm/dL Hct 39.8 % MCV 88 fL MCH 29 pg MCHC 33 gm/dL RDW 13.4 % Platelet 210 x103/mcL MPV 11.1 fL HI Auto Neut % 49 % Auto Lymph % 35 % Auto Sharkey % 14 % HI Auto Eos % 1.5 % Auto Baso % 1.1 % Neut Abs# 2.2 x103/mcL Lymph Abs# 1.6 x103/mcL Sharkey Abs# 0.6 x103/mcL Eos Abs# 0.1 x103/mcL Baso Abs# 0.0 x103/mcL Urine Source Clean Catch U Cannab Scrn Negative U Oxycod Scr Negative U Amph Scr Negative U Cony Scr Negative U Benzodia Scr Negative U Cocaine Scr Negative U Methadone Scr Negative U Opiate Scr Negative U Phencyclidine Scr Negative U Propoxyphene Scr Negative U Methamp Scrn Negative U Tricyclic Antidepress Scr Negative Tube Collected Yes Tube Collected Yes . Reexamination/ Reevaluation Patient remained stable in the emergency department. No specific finding a medical screening exam. CBC chemistry profile and thyroid was obtained. Urine drug screen obtained. Results were unremarkable Patient spoke to mental health counseling. He is safe for safety planning and home discharge. Will follow up with counseling tomorrow. Patient and , indicated understanding of instructions and treatment plan. Impression and Plan Diagnosis Suicidal thoughts ([id number] R45.851, Discharge, Medical) Plan Condition: Improved, Stable. Disposition: Discharged: Time 04/14/2019 11:34:00, to home. Patient was given the following educational materials: Suicidal Feelings: How to Help Yourself, Suicidal Feelings: How to Help Yourself. Follow up with: ; [facility] In 1 day 04/15/2019 Follow up with counseling as discussed. Return to ER for any concerns. Counseled: Patient, Family, Regarding diagnosis, Regarding diagnostic results, Regarding treatment plan, Patient indicated understanding of instructions. [Electronically Signed on: 04/14/2019 11:35 EDT] Fidencio Dempsey MD [Verified on: 04/14/2019 11:35 EDT] Fidencio Dempsey MDNoUniversity Hospitals [facility] Note-Nursingon [id number] Note-Nursing PT ARRIVED IN ED W/ CC OF SUICIDAL THOUGHTS YESTERDAY. PT STATED THAT HE WAS CONCERNED ABOUT HAVINGTHIS THOUGHT AND DECIDED TO TAKE ACTION. PT IS ALERT AND ORIENTED ANDD AMBULATED TO ED ROOM 4 W/O DIFFICULTY OR INCIDENT. PT IN ROOM SITTER AND HAS BEEN GIVEN INFORMATION SHEET.[facility] Patient Education Noteon [id number] Patient Education NoteEducation Materials Mental and Behavioral Health Suicidal Feelings: How to Help Yourself Suicide is when you end your own life. There are many things you can do to help yourself feel better when struggling with these feelings. Many services and people are available to support you and others who struggle with similar feelings.? If you ever feel like you may hurt yourself or others, or have thoughts about taking your own life,get help right away. To get help: ? Call your local emergency services (911 in the [place] ? Go to your nearest emergency department. ? Call a suicide hotline to speak with a trained counselor. The following suicide hotlines are available in the [place]: ? 7-069-230-TALK ( ). ? 1-511-SGSYOGU ( ). ? . This is a hotline for Scottish speakers. ? . This is a hotline for TTY users. ? 9-915-7-U-GONZALEZ ( ). This is a hotline for lesbian, peña, bisexual, transgender, or questioning youth. ? For a list of hotlines in [place], visit www.suicide.org/hotlines/international/hzlhrb-bufiyqk-bzqbefuc.html ? Contact a crisis center or a local suicide prevention center. To find a crisis center or suicide prevention center: ? Call your local hospital, clinic, community service organization, mental health center, social service provider, or health department. Ask for help with connecting to a crisis center. ? For a list of crisis centers in the [place], visit: suicidepreventionlifeline.org ? For a list of crisis centers in [place], visit: suicideprevention.az How to help yourself feel better ? Promise yourself that you will not do anything extreme when you have suicidal feelings. Remember,there is hope. Many people have gotten through suicidal thoughts and feelings, and you can too. If you have had these feelings before, remind yourself that you can get through them again. ? Let family, friends, teachers, or counselors know how you are feeling. Try not to separate yourself from those who care about you and want to help you. Talk with someone every day, even if you do not feel sociable. Azuc-xr-wpsk conversation is best to help them understand your feelings. ? Contact a mental health care provider and work with this person regularly. ? Make a safety plan that you can follow during a crisis. Include phone numbers of suicide prevention hotlines, mental health professionals, and trusted friends and family members you can call duringan emergency. Save these numbers on your phone. ? If you are thinking of taking a lot of medicine, give your medicine to someone who can give it toyou as prescribed. If you are on antidepressants and are concerned you will overdose, tell your health care provider so that he or she can give you safer medicines. ? Try to stick to your routines. Follow a schedule every day. Make self-care a priority. ? Make a list of realistic goals, and cross them off when you achieve them. Accomplishments can give you a sense of worth. ? Wait until you are feeling better before doing things that you find difficult or unpleasant. ? Do things that you have always enjoyed to take your mind off your feelings. Try reading a book, or listening to or playing music. Spending time outside, in nature, may help you feel better. Follow these instructions at home: ? Visit your primary health care provider every year for a checkup. ? Work with a mental health care provider as needed. ? Eat a well-balanced diet, and eat regular meals. ? Get plenty of rest. ? Exercise if you are able. Just 30 minutes of exercise each day can help you feel better. ? Take zojw-zsp-upzpmck and prescription medicines only as told by your health care provider. Ask your mental health care provider about the possible side effects of any medicines you are taking. ? Do not use alcohol or drugs, and remove these substances from your home. ? Remove weapons, poisons, knives, and other deadly items from your home. General recommendations ? Keep your living space well lit. ? When you are feeling well, write yourself a letter with tips and support that you can read when you are not feeling well. ? Remember that life's difficulties can be sorted out with help. Conditions can be treated, and youcan learn behaviors and ways of thinking that will help you. Where to find more information ? National Suicide Prevention Lifeline: www.suicidepreventionlifeline.org ? Hopeline: www.hopeline.com ? [place] Foundation for Suicide Prevention: www.afsp.org ? The Gonzalez Project (for lesbian, peña, bisexual, transgender, or questioning youth): www.thetrevorproject.org Contact a health care provider if: ? You feel as though you are a burden to others. ? You feel agitated, angry, vengeful, or have extreme mood swings. ? You have withdrawn from family and friends. Get help right away if: ? You are talking about suicide or wishing to . ? You start making plans for how to commit suicide. ? You feel that you have no reason to live. ? You start making plans for putting your affairs in order, saying goodbye, or giving your possessions away. ? You feel guilt, shame, or unbearable pain, and it seems like there is no way out. ? You are frequently using drugs or alcohol. ? You are engaging in risky behaviors that could lead to . If you have any of these symptoms, get help right away. Call emergency services, go to your [facility] department or crisis center, or call a suicide crisis helpline. Summary ? Suicide is when you take your own life. ? Promise yourself that you will not do anything extreme when you have suicidal feelings. ? Let family, friends, teachers, or counselors know how you are feeling. ? Get help right away if you feel as though life is getting too tough to handle and you are thinking about suicide. This information is not intended to replace advice given to you by your health care provider. Make sure you discuss any questions you have with your health care provider. Document Released: 12/13/2003 Document Revised: 01/19/2018 Document Reviewed: 01/19/2018 Elsevier Interactive Patient Education ? 2019 [employer] Hospital[facility] Patient Summaryon [id number] [facility] [address] [place] [id number] PATIENT DISCHARGE INSTRUCTIONS Patient Information Name: EDGAR BANERJEE Age: 29 Years Date of : 1990 Reason For Visit: Suicidal thoughts; SUCIDAL IDEATIONS Arrival Time: 04/14/2019 09:13:00 Primary Care Physician: Provider, None Attending Physician: Fidencio Dempsey MD Comment: Visit Diagnosis: Diagnoses This Visit Suicidal thoughts (R45.851) Suicidal thoughts ([id number]) Prescription Information: If you have been given a prescription for narcotics, seek immediate medical attention if you have any difficulty breathing or any sudden status changes such as confusion andsleepiness. If you or anyone you know is experiencing suicidal thoughts, mental health, alcohol and/or drug addiction problems; contact the [facility] Pending Sale To [facility] 12/01 Crisis Hotline -Text 4HDTC zm 156762. If you received any narcotics, sedation, or any other medication that causes drowsiness for the next 24 hours, unless otherwise directed: ? Do not drive a car. ? Do not operate machinery such as power tools, lawn mowers, drills, sewing machines, or stoves ? Avoid alcoholic beverages and drugs for allergies, nerves, or sleep ? Do not make important personal or business decisions or sign any legal documents With: Address: When: [facility] In 1 day 04/15/2019 Comments: [phone] Follow up with counseling as discussed. Return to ER for any concerns Medication Information: The exam and treatment you received today in the [facility] Emergency Department were for an urgent problem and are not intended as complete care. It is important for you to follow up with a doctor, nurse practitioner, or physician?s special events assistant for ongoing care. If your symptoms become worse or you donot improve as expected and you are unable to reach your usual health care provider, you should return to the Emergency Department, we are available 24 hours a day. For those patients who have received Radiology results, the interpretation of your X-ray as given to you by our Emergency Department physician is only a preliminary report. The Radiologist will review your films and if there is a change in the diagnosis you will be notified by phone. Please make sure you have provided a working phone number so we can reach you if necessary. In the event that you had a lab culture while you were a patient in the Emergency Department, you will be notified by phone if there is a need to change your antibiotic. Please make sure you have provided a working phone number so we can reach you if necessary. [facility] Emergency Department has provided you with a complete list of medications post discharge. Please inform your manufacturing software engineer/provider of your visit and for further instruction on these medications. Any specific questions regarding your chronic medications and dosages should be discussed with your primary care physician(s) and/or pharmacist. Medications to Continue That Have Not Changed Other Medications loratadine-pseudoephedrine (loratadine-pseudoephedrine 10 mg-240 mg oral tablet, extended release) 1 tab(s) Oral every day. Refills: 0. metFORMIN (metFORMIN 500 mg oral tablet) 2 tab(s) Oral once a day (in the evening). take with evening meal. Visit Information Allergies: Substance Reaction Symptoms Type Comments No Known Medication Allergies Drug Vital Signs: Vitals and Measurements this Visit (last charted value for your 04/14/2019 visit) Vital Signs This Visit Temperature Oral: 36.7 DegC Peripheral Pulse Rate: 85 bpm Respiratory Rate: 16 br/min Systolic Blood Pressure: 132 mmHg Diastolic Blood Pressure: 77 mmHg SpO2: 98 % Oxygen Therapy: Room air Measurements This Visit Height/Length Dosin.500 cm Height/Length Estimated: 162.500 cm Weight Dosin.900 kg Weight Estimated: 92.900 kg Problems List: Problem Onset Comments IFG (impaired fasting glucose) Patient Education Suicidal Feelings: How to Help Yourself Suicide is when you end your own life. There are many things you can do to help yourself feel better when struggling with these feelings. Many services and people are available to support you and others who struggle with similar feelings.? If you ever feel like you may hurt yourself or others, or have thoughts about taking your own life,get help right away. To get help: ? Call your local emergency services (911 in the [place] ? Go to your nearest emergency department. ? Call a suicide hotline to speak with a trained counselor. The following suicide hotlines are available in the [place]: ? 8-756-863-TALK ( ). ? 6-459-VISKWCV ( ). ? . This is a hotline for Scottish speakers. ? . This is a hotline for TTY users. ? 7-198-9-UDAVID ( ). This is a hotline for lesbian, peña, bisexual, transgender, or questioning youth. ? For a list of hotlines in [place], visit www.suicide.org/hotlines/international/urpilp-yigdbus-tauypqpm.html ? Contact a crisis center or a local suicide prevention center. To find a crisis center or suicide prevention center: ? Call your local hospital, clinic, community service organization, mental health center, social service provider, or health department. Ask for help with connecting to a crisis center. ? For a list of crisis centers in the [place], visit: suicidepreventionlifeline.org ? For a list of crisis centers in [place], visit: suicideprevention.ca How to help yourself feel better ? Promise yourself that you will not do anything extreme when you have suicidal feelings. Remember,there is hope. Many people have gotten through suicidal thoughts and feelings, and you can too. If you have had these feelings before, remind yourself that you can get through them again. ? Let family, friends, teachers, or counselors know how you are feeling. Try not to separate yourself from those who care about you and want to help you. Talk with someone every day, even if you do not feel sociable. Nspi-oa-ofgs conversation is best to help them understand your feelings. ? Contact a mental health care provider and work with this person regularly. ? Make a safety plan that you can follow during a crisis. Include phone numbers of suicide prevention hotlines, mental health professionals, and trusted friends and family members you can call duringan emergency. Save these numbers on your phone. ? If you are thinking of taking a lot of medicine, give your medicine to someone who can give it toyou as prescribed. If you are on antidepressants and are concerned you will overdose, tell your health care provider so that he or she can give you safer medicines. ? Try to stick to your routines. Follow a schedule every day. Make self-care a priority. ? Make a list of realistic goals, and cross them off when you achieve them. Accomplishments can give you a sense of worth. ? Wait until you are feeling better before doing things that you find difficult or unpleasant. ? Do things that you have always enjoyed to take your mind off your feelings. Try reading a book, or listening to or playing music. Spending time outside, in nature, may help you feel better. Follow these instructions at home: ? Visit your primary health care provider every year for a checkup. ? Work with a mental health care provider as needed. ? Eat a well-balanced diet, and eat regular meals. ? Get plenty of rest. ? Exercise if you are able. Just 30 minutes of exercise each day can help you feel better. ? Take kkyu-hwd-zaxdfqo and prescription medicines only as told by your health care provider. Ask your mental health care provider about the possible side effects of any medicines you are taking. ? Do not use alcohol or drugs, and remove these substances from your home. ? Remove weapons, poisons, knives, and other deadly items from your home. General recommendations ? Keep your living space well lit. ? When you are feeling well, write yourself a letter with tips and support that you can read when you are not feeling well. ? Remember that life's difficulties can be sorted out with help. Conditions can be treated, and youcan learn behaviors and ways of thinking that will help you. Where to find more information ? National Suicide Prevention Lifeline: www.suicidepreventionlifeline.org ? Hopeline: www.hopeline.com ? [place] Foundation for Suicide Prevention: www.afsp.org ? The Gonzalez Project (for lesbian, peña, bisexual, transgender, or questioning youth): www.thetrevorproject.org Contact a health care provider if: ? You feel as though you are a burden to others. ? You feel agitated, angry, vengeful, or have extreme mood swings. ? You have withdrawn from family and friends. Get help right away if: ? You are talking about suicide or wishing to . ? You start making plans for how to commit suicide. ? You feel that you have no reason to live. ? You start making plans for putting your affairs in order, saying goodbye, or giving your possessions away. ? You feel guilt, shame, or unbearable pain, and it seems like there is no way out. ? You are frequently using drugs or alcohol. ? You are engaging in risky behaviors that could lead to . If you have any of these symptoms, get help right away. Call emergency services, go to your nearest[facility] department or crisis center, or call a suicide crisis helpline. Summary ? Suicide is when you take your own life. ? Promise yourself that you will not do anything extreme when you have suicidal feelings. ? Let family, friends, teachers, or counselors know how you are feeling. ? Get help right away if you feel as though life is getting too tough to handle and you are thinking about suicide. This information is not intended to replace advice given to you by your health care provider. Make sure you discuss any questions you have with your health care provider. Document Released: 12/13/2003 Document Revised: 01/19/2018 Document Reviewed: 01/19/2018 Easy Metrics Interactive Patient Education ? 2019 [employer]. Viruses or Bacteria What?s got you sick? Antibiotics only treat bacterial infections. Viral illnesses cannot be treated with antibiotics. When an antibiotic is not prescribed, ask your healthcare professional for tips on how to relieve symptoms and feel better. Usual Cause Illness Viruses Bacteria Antibiotic Needed Cold/Runny Nose NO Bronchitis/Chest Cold (in otherwise healthy children and adults) NO Whooping Cough Yes Flu NO Strep Throat Yes Sore Throat (except strep) NO Fluid in the middle ear (otitis media with effusion) NO Urinary Tract Infection Yes Antibiotics Aren?t Always the Answer www.cdc.gov/getsmart GET SMART Know When Antibiotics Work U.S. Department of Health and Human Services Centers for Disease Control and Prevention February 2014[facility] Extra Red [id number] CollectedHolzer Health SystemComment on above: Performed By: #### [id number], [id number], [id number], [id number] #### [place] (DEFAULT) [address] [place], [place] [address]QEI w/ Reflex to FT4on 05-85-5896UPD Qn1.30 mcIU/mLNormal 0.45-5.33[facility] NorthComment on above:Result Comment: General Population (males and non- females, aged 21-88) 0.45 - 5.33 Females, 1st Trimester 0.05 - 3.70 Females, 2nd Trimester 0.31 - 4.35 Females, 3rd Trimester 0.41 - 5.18Performed By: #### [id number], [id number] #### [place] (DEFAULT) [address] [place] [address] 43854Rlczpg Panel [id number] Internal ControlPass NormalMagruder HospitalComment on above:Performed By: #### [id number] #### [place] (DEFAULT) [address] [place] [address] 93390D Amph ScrNegativeNormalMagruder HospitalComment on above: Performed By: #### [id number] #### [place] (DEFAULT) [address] [place] [address] 84629D Cony ScrNegativeNormalMagruder HospitalComment on above: Performed By: #### [id number] #### [place] (DEFAULT) [address] [place] [address] 56059X Benzodia ScrNegativeNormalMagruder HospitalComment on above:Performed By: #### [id number] #### [place] (DEFAULT) [address] [place] [address] 84021I Cannab ScrnNegativeNormalMagruder HospitalComment on above:Performed By: #### [id number] #### [place] (DEFAULT) [address] [place] [address] 31885B Cocaine ScrNegativeNormalMagruder HospitalComment on above:Performed By: #### [id number] #### [place] (DEFAULT) [address] [place] [address] 24768N Methadone ScrNegativeNormalMagruder HospitalComment on above:Performed By: #### [id number] #### [place] (DEFAULT) [address] [place] [address] 25946X Methamp ScrnNegativeNormalMagruder HospitalComment on above:Performed By: #### [id number] #### [place] (DEFAULT) [address] [place] [address] 25856E Opiate ScrNegativeNormalMagruder HospitalComment on above:Performed By: #### [id number] #### [place] (DEFAULT) [address] [place] [address] 79817S Oxycod ScrNegativeNormalMagruder HospitalComment on above:Performed By: #### [id number] #### [place] (DEFAULT) [address] [place] [address] 96951X Phencyclidine ScrNegativeNormalMagruder HospitalComment on above:Performed By: #### [id number] #### [place] (DEFAULT) [address] [place] [address] 98575D Propoxyphene ScrNegativeNormalMagruder HospitalComment on above:Performed By: #### [id number] #### [place] (DEFAULT) [address] [place] [address] 71490S Tricyclic Antidepress ScrNegativeNormalMagruder Hospital Comment on above:Performed By: #### [id number] #### [place] (DEFAULT) [address] [place] [address] 82853Lzmjl SourceClean CatchNormalMagruder HospitalComment on above:Performed By: #### [id number] #### [place] (DEFAULT) [address] [place] [address]20 Vital Signs Date TimeVital SignValuePerforming [id number] 13:05-0400Body .56 cmCorry Byrne APRN Work Phone: [facility]10-15-2025 13:05-0400 Body mass index (BMI) [Ratio]40.3 kg/p2OhttqgnuCorry Byrne APRN Work Phone: [facility]10-15-2025 13:05-0400 Body coaneixnylr96.2 [degF]Corry Byrne APRN Work Phone: [facility]10-15-2025 13:05-0400 Body hceecn233.59 kgCorry Byrne STUDIO ENGINEER Work Phone: [facility]10-15-2025 13:05-0400 Diastolic blood ayeywrlw68 mm[Hg]Corry Valerovaleriano STUDIO ENGINEER Work Phone: [facility]10-15-2025 13:05-0400 Heart rate86 /Pita Byrne STUDIO ENGINEER Work Phone: [facility]10-15-2025 13:05-0400 SaO2% (BldA) [Mass fraction]99 %Corry Reidpietermahsavaleriano STUDIO ENGINEER Work Phone: [facility]10-15-2025 13:05-0400 Systolic blood mm[Hg]Corry Reidcaio STUDIO ENGINEER Work Phone: [facility]05-04-2025 09:29-0400 Body nhudre225.56 cmR[facility]view [facility] Institute05-04-2025 09:29-0400Body mass index (BMI) [Ratio]39.9 kg/u4SvgqixtzqRiverview Health Institute05-04-2025 09:29-0400Body aoqslujqgzy37 [degF][facility]05-04-2025 09:29-0400Body tkxyqo307.46 kgRiverview Health Institute05-04-2025 09:29-0400Diastolic blood mnsootae64 mm[Hg][facility] 10-23-2024 09:29-0400Heart rate76 /[facility] 10-23-2024 09:29-0400Respiratory rate18 /[facility] 10-23-2024 09:29-1021CuY8% (BldA) [Mass fraction]98 %[facility]05-04-2025 09:29-0400Systolic blood mm[Hg][facility]11-27-2022 10:35-0500Body blsorl962.56 Tracy Ferro Other [employer] Other 11-27-2022 10:35-0500Body mass index (BMI) [Ratio] 40.68 kg/x1Zucfbnayde Ferro Other [employer] Other 11-27-2022 10:35-0500Body kqzjmzqfhod50 [degF]Ingrid Ferro Other [employer] Other 11-27-2022 10:35-0500Body onwlqa768.5 kgPaayde Ferro Other [employer] Other 11-27-2022 10:35-0500Respiratory rate18 /minIngrid Ferro Other [employer] Other 11-27-2022 10:35-5928CtQ1% (BldA) [Mass fraction]95 % Ingrid Ferro Other [employer] Other 05-09-2022 14:30-0400Body ndijeg472.56 cmCorry Byrne Other [employer] Other 05-09-2022 14:30-0400Body mass index (BMI) [Ratio] 40.68 kg/m6Lxmgzbfv Rohrbacher Other [employer] Other 05-09-2022 14:30-0400Body rolbas197.5 kgEscobarnnifer Rohrbacher Other [employer] Other 05-09-2022 14:30-0400Diastolic blood cywuxisv07 mm[Hg] Corry Byrne Other [employer] Other 05-09-2022 14:30-8787GjB8% (BldA) [Mass fraction]98 % Corry Chavez Other [employer] Other 05-09-2022 14:30-0400Systolic blood mualtwxg442 mm[Hg] Corry Chavez Other [employer] Other Encounters Encounter DateEncounter Type[facility] ProviderFacilityStart: 04-05-2025 End: 45-10-3397fgkvmarumjQbrdsgykRiver Byrne APRN Work Phone: [facility] Work Phone: Start: 04-05-2025 End: 28-72-3854Rwlnxve encounter procedureCorry Byrne APRSheltering Arms Hospital Work Phone: Start: 04-05-2025 End: 72-12-2832Jiqzgaf encounter statusCorry Byrne APRN [facility] Hospitaltart: 10-23-2024 End: 84-68-7535eejyaoavmfYtkgvcaabSumma Health [facility] Work Phone: Start: 10-23-2024 End: 27-28-6739Qjextop encounter [facility] Work Phone: Start: 75-87-6479Oxqjjyh encounter [facility]: 05-18-2022 End: 14-84-9997epvmwhvtysFhxafb Dymond Other [employer] Other Start: 81-92-3921Rsvtxt outpatient visit 25 minutes Ingrid SarmientoG [facility] ClydeStart: 28-35-2729Gtwiiqfjl encounterCorry Truong [facility] ClydeStart: 10-28-2021 End: 42-79-7783iadptzyswjXsxzyiqp Rohrbacher Other [employer] Other Start: 17-74-8671Ofcbmwpuf for general adult medical examination without abnormal findingsCorry Truong [facility] HospitaltonStart: 97-39-8449Eaksiodc preventive med est patient 18-39 yrsCorry OjedaSt. Mary's HospitalStart: 10-15-2021 End: 07-89-6674irkwqwvdqbZsgwilqg Rohrbacher Other [employer] Other Start: 24-03-0357Fqrfflviz encounterCorry OjedaSt. Mary's HospitalStart: 09-13-2021 End: 00-74-3766dhkxzttmdtDefwddwg Rohrbacher Other [employer] Other Start: 86-22-4990Fhcvkfozx encounterCorry ByrneNoYunnan Landsun [employer]) Procedures DateProcedureProcedure DetailPerforming ClinicianStart: 41-24-3966Ttfqn Strep (POC) Plan of Treatment DateCare ActivityDetailAuthorComprehensive metabolic 2000 panel - Serum or PlasmaHCA [facility] Immunizations Immunization DateImmunizationNotesCare XrqzolkpEmkbhekr83-30-4562zmkzfzaua, injectable, quadrivalent, preservative [facility] 62-50-5065mcrsadptp, injectable, quadrivalent, contains preservativeJennifer Rohrbacher Other [employer] Other [id number], injectable, quadrivalent, preservative [facility]10-16-2018influenza, injectable, quadrivalent, contains preservativeJennifer Rohrbacher Other [employer] Other Payers DatePayer CategoryPayerPolicy [id number] [id number] of Defense ( and others) [facility] Fed-[id number] Social History DateTypeDetailFacilityUnknown if ever smokedOcean [facility] Hospital [employer] Other Sex Assigned At BirthSex Assigned At [facility] [employer] Other Start: 53-29-0239Olydjmn smoking status NHISNever smoked tobacco (finding)[facility]: 64-98-7108Tua Male (finding)[facility]tart: 44-02-3997Zte Assigned At [facility] Medical Equipment Procedure CodeEquipment CodeEquipment Original TextEquipment IdentifierDates Start: 10-03-2014 Evaluation note 05-18-2022 Note Date & HgpjYeimYqzmpjiz18-15-6877 Evaluation note* Encounter Date Diagnosis Assessment Notes Treatment Notes Treatment Clinical Notes Apr, Sore throat (ICD-10 - J02.9) Apr,Influenza A (ICD-10 - J10.1)Influenza: adult home care material was printed Drink plenty fluids, get plenty of rest. Take Tylenol or Motrin as needed for aches pains or fevers. Off work until Thursday. Follow-up with your family physician if no improvement in 2 to 3 days. [facility] [employer] Other Evaluation note 10-28-2021 Note Date & VtteAmgqGfmrhqpz26-51-7539 Evaluation note* Encounter Date Diagnosis Assessment Notes Treatment Notes Treatment Clinical Notes October, Wellness examination (ICD-10 - Z 00.00) Wellness performed today. Height, weight, BMI, and immunization reviewed. Encouraged regular periods of exercise.. Encouraged to eat a diet rich in plant- based foods and lean protein. Limit junk foodand sources of excess calories. October,Hypercholesterolemia (ICD-10 - E78.00)Lipid panel reviwed with patient. LDL increased. Lipitor increased. Dicsussed importance of maintaining an LDL level at specified goal. Discussed associated risk factors of hyperlipidemia including stroke and heart attack. Treatment with medications discussed and we have agrees upon appropirate action of treatment and goals. Discussed dietary modifications, including decreasing red meat consumption, decreased alcohol consumption, avoiding fried foods, and cake and cookies, and sweets. Encouraged increasing fiber in diet and eat a diet rich in omega-3. Encouraged to exericse at least 150 minutes weekly. Barriers to plan of care have been addressed. Follow-up as directed. Patient given a copyof the plan of care. October,Impaired fasting glucose (ICD-10 - R73.01)Fasting glucose was 116. In office hgba1c today is 6.1%. He does not want to be on the Metformin due to side effects. He is going to change his dietary habits. Recommended that patient eat 3 meals per day with 2 snacks during the day. Small portion sizes. Well rounded diet with fruits, vegetables, whole grains and proteins. Limit fried food, fat intake, and fast food intake. At least 10-8oz glasses water per day. Limit intake of ETOH. Recommended ETOH guidelines reviewed with patient. Patient hgba1c today indicates prediabetes. Prediabetes education printed off, reviewed with patient.. Patient is advised to work on healthy diet choices and appropriate servings, weight control, regular exercise as directed, and reduce fat intake. Discussed in detail to the risk of developing diabetes. [employer] Other Evaluation note 10-15-2021 Note Date & KmcoGoawSuwedyhp09-59-5328 Evaluation note* Encounter Date Diagnosis Assessment Notes Treatment Notes Treatment Clinical Notes Sep, Hypercholesterolemia (ICD-10 - E 78.00) Sep,Impaired fasting glucose (ICD-10 - R73.01) [employer] Other Evaluation note 09-13-2021 Note Date & CtlrQkssAkefpcdw04-62-4560 Evaluation note* Encounter Date Diagnosis Assessment Notes Treatment Notes Treatment Clinical Notes Aug, Impaired fasting glucose (ICD-10 - R73.01) Aug,Hypercholesterolemia (ICD-10 - E78.00) Aug,creening for metabolic disorder (ICD-10 - Z13.228) [facility] [employer] Other Evaluation note Note Date & TypeNoteFacilityEvaluation noteNo InformationNortUpper Allegheny Health System [employer] Other Evaluation note Note Date & TypeNoteFacilityEvaluation noteNo assessment information available [facility] Work Phone: Evaluation note Note Date & TypeNoteFacilityEvaluation note* Diagnosis Onset Date Resolution Status Admit Date BMI 40.0-44.9, adult acuteOctober 2024 1:03pmHypercholesterolemiaacuteOctober 2024 1:03pm Impaired fasting glucoseacuteOctober 2024 1:03pmWellness examinationacute April 05, 2025 1:03pm [facility] Work Phone: History general Narrative - Reported Note Date & TypeNoteFacilityHistory general Narrative - Reported* Type Description Date Medical History left shoulder A-C separation hea led w/o surgery Medical Historyimpaired fasting glucose [facility] [employer] Other Reason for referral (narrative) Note Date & TypeNoteFacilityReason for referral (narrative)No reason for referral information availableSumma Health [facility] Work Phone: Summary Purpose Family History Relationship Condition Age at Onset Recorded Date/T samanta father Hypertension Unknown Diabetes mellitusUnknownDeceasedUnknownmotherDiabetes mellitusUnknownsister Diabetes mellitusUnknown Advance Directives Advance Directive Response Recorded Date/ Time Advance Directives No July 10:33am Chief Complaint and Reason for Visit Chief Complaint Admit Date Cough, Congestion, wheezing, sore throat October 23, 2024 9:26am Chief Complaint Admit Date Wellness April 05, 2025 1 :03pm Reason for Visit Admit Date BMI 40.0-44.9, adult April 05, 2025 1:03pm Hypercholesterolemia April 05, 2025 1:03pm Impaired fasting glucose April 05, 2 025 1:03pm Wellness examination April 05, 2025 1:03pm Additional Source Comments (unrecognized sect ion and content) No Status Records FoundNo Status Records Found INFORMATION SOURCE (unrecogn ized section and content) DATE CREATED AUTHOR 04/19/2019 [facility] DATE CREATED AUTHOR AUTHOR'S RADHASONJA JAMESAMY 12/19/2021 [facility] REASON FOR VISIT (unrecogniz ed section and content) SORE THROATAnnualrefill Care Teams (unrecognized sec tion and content) Team Status: Active Member Role Status Dates Corry Byrne APRN [employer] Primary Care Provider Active Team Status: Inactive Member Role Status Dates Corry Byrne APRN [employer] Primary Care Provider Active Start: October 23, 2024 End: October 23, 2024Sandor Wolfe ProviderActiveStart: October 23, 2024 End: October 23, 2024 Team Status: Inactive Member Role Status Dates Corry Byrne APRN [employer] Primary Care Provider Active Start: March End: April 05, 2025Corry Byrne APRN NP-Javy ProviderActive Start: April 05, 2025 End: April 05, 2025 Goals (unrecognized section and content) Goals may be documented in a n alternate section FOR RECORDS PERTAINING TO PATIENTS WHO ARE OR HAVE BEEN ENROLLED IN A CHEMICAL DEPENDENCY/SUBSTANCEABUSE PROGRAM, SOME INFORMATION MAY BE OMITTED. This clinical summary was aggregated from multiple sources. Caution should be exercised in using it in the provision of clinical care. This summary normalizes information from multiple sources, and as a consequence, information in this document may materially change the coding, format and clinical context of patient data. In addition, data may be omitted in some cases. CLINICAL DECISIONS SHOULD BE BASED ON THE PRIMARY CLINICAL RECORDS. [employer] [facility]. provides no warranty or guarantee of the accuracy or completeness of information in this document.
--- OUTSIDE RECORDS SUMMARY | 2025-04-12 07:11 | XMS_ITS | Clinical Summary ---
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 Phone Unavailable Primary Care Provider Unavailabl e Source Comments The following information is NOT included in Care Everywhere downloads:Psychiatric notes, ECG results, Cardiac Rehab notes, Pulmonary Function notes, data from SmartForms (includes but not limited toPregnancy data,audiograms, eye exams, pre-surgical evaluation notes, well-child exam data).[facility] Immunizations ImmunizationAdministration DatesNext DueAnthrax vaccine, adsorbed, pre-exposure and post-exposure prophylaxis (CVX=24)11/18/2010Hep A-Hep B (adult) (NRP=844) 09/19/2009Hep B (adult, 3-dose) or (adol 11-15, 2-dose) (CVX=43)03/13/2009 Hepatitis A, Adult (CVX=52)03/13/2009Influenza, Split (incl. purified surface antigen) Vaccine (retired code) (CVX=15)07/26/2008Influenza, injectable, quadrivalent, preservative (TWU=221)04/07/2019,04/06/2018Influenza, injectable, quadrivalent, preservative free (JYB=080)06/25/2021Influenza, injectable, trivalent, preservative (XYS=517)05/06/2013Influenza, injectable, trivalent, preservative free (PIS=795)04/09/2015,04/13/2014Influenza, intranasal, live, trivalent (LAIV3) (IXG=687)02/27/2011Influenza, novel Y4Q1-37, live, intranasal, (ODB=190)12/14/2009MMR, Tnoxxnb-Enore-Ifkdimh (CVX=03)07/12/2009Meningococcal polysaccharide (MPSV4) (CVX=32)07/17/2009Polio, inactivated (IPV) (CVX=10) 07/26/2008Tdap (VNU=311)08/14/2020,07/12/2009Typhoid, Vi capsular polysaccharhide (ViCPS) (QHY=681)07/17/2009Vaccinia (smallpox) (CVX=75) 08/25/2008Varicella (Chickenpox) (CVX=21)03/13/2009Yellow Fever (CVX=37) 07/17/2009 Social History Tobacco UseTypesPacks/DayYears UsedDateSmoking Tobacco: Never AssessedSex and Gender InformationValueDate RecordedSex Assigned at BirthNot on fileLegal Sex Male05/30/2020 3:26 PM ESTGender IdentityNot on fileSexual OrientationNot on file Plan of Treatment Health MaintenanceDue DateLast DoneCommentsHIV Test02/29/2004Hepatitis C Zacjhjqo59/09/2007Hepatitis B (HBV) Vaccine (3 of 3 - 19+ 3-dose series) , 03/13/2009Hepatitis A (HAV) Vaccine (3 of 3 - Risk Twinrix secondary 3-dose series), 03/13/2009HPV Vaccine (optional start 27-45 years)02/29/20169359Igbpehtqmvt18/09/2024COVID-19 Vaccine ( season)511/10/2020, 07/18/2020, 06/20/2020Influenza Vaccine (#1) 501/09/2021, 04/07/2019, 04/06/2018, Additional history existsTetanus (Td or Tdap) Wdtfapj29, 07/12/2009Shingles (RZV) Vaccine (1 of 2)2039Tdap FzwmglbLqjuhnlij92/23/2021, 07/12/2009Pneumococcal Vaccine(s) Aged OutNo longer eligible based on patient's age to complete this topic
[2025-04-12 07:29] LABS: Hematocrit 40.8 % (42.0-54.0); Hemoglobin 13.6 g/dL (14.0-18.0); Immature Granulocytes Abs Auto 0.02 10^3/uL (0.00-0.03); Immature Granulocytes Pct Auto 0.3 % (0.0-0.5); Lymphocytes Absolute Auto 2.1 10^3/uL (1.2-3.8); Mean Corpuscular HGB Conc 33.3 g/dL (29.9-35.2); Mean Corpuscular Hemoglobin 29.0 pg (25.9-34.0); Mean Corpuscular Volume 87.0 fL (80.0-94.0); Platelet Count 246 10^3/uL (150-450); Red Blood Count 4.69 10^6/uL (4.70-6.10); White Blood Count 6.7 10^3/uL (4.0-11.0)
[2025-04-12 07:36] LABS: Alanine Aminotransferase 51 U/L (16-63); Albumin Globulin Ratio 0.9; Albumin Level 3.7 g/dL (3.4-5.0); Alkaline Phosphatase 97 U/L (46-116); Anion Gap 12.0; Aspartate Amino Transferase 21 U/L (15-37); Blood Urea Nitrogen 13.0 mg/dL (7.0-18.0); Calcium 9.3 mg/dL (8.5-10.1); Carbon Dioxide 29.0 mmol/L (21.0-32.0); Chloride 105 mmol/L (98-107); Cholesterol 160 mg/dL (<=200); Estimated GFR (African America >60 (>=60 mL/min/1.73m^2); Estimated GFR (Non-African Ame >60 (>=60 mL/min/1.73m^2); Globulin 4.0 g/dL; Glucose 138 mg/dL (74-106); HDL Cholesterol 38 mg/dL (40-60); Potassium 4.0 mmol/L (3.5-5.1); Sodium 142 mmol/L (136-145); Total Protein 7.7 g/dL (6.4-8.2); Triglycerides 92 mg/dL (<=150); VLDL CHOLESTEROL 18.4 mg/dL
== END 2025-04-12 07:07 | disposition home or self-care (01) ==
LOC: LAB 07:09
PROVIDERS: PCP Nurse Practitioner Family; Visit Provider Nurse Practitioner Family
DX: Z00.00 Encounter for general adult medical examination without abnormal findings (principal); R73.01 Impaired fasting glucose; E78.00 Pure hypercholesterolemia, unspecified
CPT/HCPCS: 36415; 80053; 80061; 83036; 85025